=== PATIENT | female | born 1935 | race Caucasian/White ===

== ENCOUNTER → 2016-05-12 | Outpatient (CLI) | payer OTHER, MEDICAID ==
--- NOTE | 2016-05-12 20:09 | MA ---
Screening Digital Mammogram, With iCAD Indication: Routine screening. Personal history of left breast cancer diagnosed in 2011, with subse quent lumpectomy and radiation therapy. Technique: Standard cephalocaudal and mediolateral oblique projections are obtained. This examinati on is processed [facility] detection [facility]. Comparison: April 2015, February 2014, March 2013, and June 2011. Breast Density: Type B. Findings: CAD was reviewed. Benign fat necrosis in the left breast lumpectomy bed is unchanged. No new mass, architectural distortion, or malignant-type calcification has developed. Impression: Benign unchanged mammograms. BI-RADS 2: Benign Finding. Recommendation: Routine screening is recommended in one year. [facility] will send a result letter to the patient. Negative mammography should not preclude additional workup of a clinically suspicious finding. The patient's information is entered into a reminder system with a target due date for her next mammo gram.
== END ==
LOC: CIMAGING 09:13
DX: Z12.31 Encounter for screening mammogram for malignant neoplasm of breast (principal); Z85.3 Personal history of malignant neoplasm of breast; Z92.3 Personal history of irradiation
CPT/HCPCS: G0202

== ENCOUNTER → 2016-06-18 | Outpatient (CLI) | payer OTHER, MEDICAID | LOC: BHFA 10:15 | PROVIDERS: ATTEND Internal Medicine Interventional Cardiology | DX: Z01.810 Encounter for preprocedural cardiovascular examination (principal); I25.10 Atherosclerotic heart disease of native coronary artery without angina pectoris ==

== ENCOUNTER → 2016-08-11 | Outpatient (CLI) | payer OTHER, MEDICAID | LOC: BHFA 09:00 | PROVIDERS: ATTEND Internal Medicine Cardiovascular Disease | DX: I25.10 Atherosclerotic heart disease of native coronary artery without angina pectoris (principal); I10 Essential (primary) hypertension; Z95.1 Presence of aortocoronary bypass graft | CPT/HCPCS: 78452; 93017; A9500; J2785 ==

== ENCOUNTER 2016-09-23 06:14 | Inpatient (IN) | payer OTHER, MEDICAID ==
[2016-09-23] MEDS ORDERED: TRANEXAMIC ACID 3,000 MG/50 ML BAG IRR ONE (06:34)
[2016-09-23] MEDS ORDERED: VANCOMYCIN 1 GM VIAL ONE (06:34)
[2016-09-23] MEDS ORDERED: LIDOCAINE 1% 5 ML SDV ONE (06:37)
[2016-09-23] MEDS ORDERED: MIDAZOLAM 2 MG/2 ML VIAL ONE (06:55)
[2016-09-23] MEDS ORDERED: PROPOFOL/EMULSION 500 MG/50 ML BOTTLE IV ONE (06:59)
[2016-09-23] MEDS ORDERED: fentaNYL 100 MCG/2 ML INJ ONE (06:59)
[2016-09-23] MEDS ORDERED: ROPI/epiNEPH/KETOROLAC JOINT COCKTAIL IU ONE (07:00)
[2016-09-23] MEDS ORDERED: DEXAMETHASONE 4 MG/ML VIAL IVP ONE (07:00)
[2016-09-23] MEDS ORDERED: CHLORHEXIDINE GLUC HIBICLENS 118 ML BTL TP ONE (07:00)
[2016-09-23] MEDS ORDERED: FAMOTIDINE 20 MG TAB PO ONE (07:00)
[2016-09-23] MEDS ORDERED: CEFAZOLIN 2 GM/DEXTR 100 ML IV ONE (07:00)
[2016-09-23] MEDS ORDERED: TRANEXAMIC ACID 3,000 MG in NS 50 ML IRR ONE (07:00)
[2016-09-23] MEDS ORDERED: ACETAMINOPHEN 325 MG TAB PO ONE (07:00)
[2016-09-23] MEDS ORDERED: epHEDrine SULFATE 10 MG/ML SYR ONE ×2 (07:26)
[2016-09-23] MEDS ORDERED: LIDOCAINE 2% 5 ML SDV ONE ×2 (07:27)
[2016-09-23] MEDS ORDERED: PHENYLEPHRINE HCL 100 MCG/ML SYR ONE (07:44)
[2016-09-23] MEDS ORDERED: ROPIVACAINE HCL 150 MG/30 ML INJ ONE (07:56)
[2016-09-23] MEDS ORDERED: TEMAZEPAM 15 MG CAP PO PRN (08:31)
[2016-09-23] MEDS ORDERED: LACTULOSE 20 GM/30 ML UDCUP PO PRN (08:31)
[2016-09-23] MEDS ORDERED: METOCLOPRAMIDE 10 MG/2 ML VIAL IVP PRN (08:31)
[2016-09-23] MEDS ORDERED: BISACODYL 10 MG SUPP PR PRN (08:31)
[2016-09-23] MEDS ORDERED: DIPHENOXYLATE/ATROPINE LOMOTIL 1 TAB PO PRN (08:31)
[2016-09-23] MEDS ORDERED: ONDANSETRON DISINTEGRATING 4 MG TAB PO PRN (08:31)
[2016-09-23] MEDS ORDERED: PHARMACY PAIN CONSULT 1 EA MISC PRN (08:31)
[2016-09-23] MEDS ORDERED: PROMETHAZINE HCL 25 MG SUPPR PR PRN (08:31)
[2016-09-23] MEDS ORDERED: diphenhydrAMINE 25 MG CAP PO PRN (08:31)
[2016-09-23] MEDS ORDERED: ONDANSETRON 4 MG/2 ML VIAL IVP PRN (08:31)
[2016-09-23] MEDS ORDERED: MAGNESIUM HYDROXIDE 30 ML UDCUP PO PRN (08:31)
[2016-09-23] MEDS ORDERED: POLYETHYLENE GLYCOL 3350 17 GM PKT PO PRN (08:31)
[2016-09-23] MEDS ORDERED: PROMETHAZINE HCL 25 MG/ML INJ IVP PRN (08:31)
--- NOTE | 2016-09-23 08:31 | POSTOPPROG ---
Post Op Note Date of Operation: 09/23/16 Surgeon: Michael Layne Product Engineer: ulises layne Anesthesiologist: dr. boston Anesthesia: Spinal, Other (Specify) (adductor canal) Pre-op Diagnosis: R knee OA Post-op Diagnosis: same Indication: right knee pain due to OA that failed conservative measures Procedure: R TKA Findings: severe knee OA Inf/Abcess present in the surg proc area at time of surgery?: No EBL: 50-100
[2016-09-23] MEDS ORDERED: LR 1,000 ML IV SCH (09:00)
[2016-09-23] MEDS: ACETAMINOPHEN 325 MG TAB PO SCH ×3 (12:06→23:31)
[2016-09-23] MEDS: SENNOSIDES/DOCUSATE SODIUM TAB PO SCH ×2 (12:08→20:14)
[2016-09-23] MEDS: oxyCODONE IR 5 MG TAB PO PRN ×2 (13:50→20:07)
[2016-09-23] MEDS: ceFAZolin 2 GM/DEXTROSE 100 ML IV SCH ×2 (14:53→20:13)
[2016-09-23] MEDS: CARVEDILOL 6.25 MG TAB PO SCH (18:26)
[2016-09-23] MEDS: FAMOTIDINE 20 MG TAB PO SCH (20:15)
[2016-09-23] MEDS: ATORVASTATIN CALCIUM 40 MG TAB PO SCH (20:28)
[2016-09-24] MEDS: oxyCODONE IR 5 MG TAB PO PRN ×5 (04:12→22:31)
[2016-09-24 05:43] LABS: HEMATOCRIT 32.9 % (38.0-47.0); HEMOGLOBIN 10.3 g/dL (12.6-16.3)
[2016-09-24 05:57] LABS: ANION GAP 5 mEq/L (8-16); CALCIUM 8.7 mg/dL (8.5-10.4); CARBON DIOXIDE 23 mEq/l (22-31); CHLORIDE 104 mEq/L (97-110); CREATININE 0.6 mg/dL (0.6-1.0); GLOMERULAR FILTRATION RATE > 60; GLUCOSE 100 mg/dL (70-100); POTASSIUM 3.8 mEq/L (3.5-5.2); SODIUM 132 mEq/L (134-144)
[2016-09-24] MEDS ORDERED: LEVOTHYROXINE SODIUM 75 MCG PO SCH (06:00)
[2016-09-24] MEDS: ACETAMINOPHEN 325 MG TAB PO SCH ×3 (06:02→18:03)
[2016-09-24] MEDS: LEVOTHYROXINE 75 MCG TAB PO SCH (06:05)
[2016-09-24] MEDS: CARVEDILOL 6.25 MG TAB PO SCH ×2 (08:13→18:04)
[2016-09-24] MEDS: CLOPIDOGREL BISULFATE 75 MG TAB PO SCH (08:13)
[2016-09-24] MEDS: FAMOTIDINE 20 MG TAB PO SCH ×2 (08:14→22:01)
[2016-09-24] MEDS: SENNOSIDES/DOCUSATE SODIUM TAB PO SCH ×2 (08:44→22:01)
[2016-09-24] MEDS ORDERED: RAMIPRIL 10 MG PO SCH (09:00)
[2016-09-24 11:10] VITALS: RESP 16
[2016-09-24] MEDS: RAMIPRIL 5 MG CAP PO SCH (11:47)
--- NOTE | 2016-09-24 14:14 | SOAPPROG ---
SOAP Progress Note Assessment/Plan: Assessment: Brittney is doing well s/p R TKA 1) pain management: pain is well controlled on oral pain meds, educated patient that pain will worsen this afternoon/evening as the adductor canal block wears off 2) Anemia: level expected initially postop. asymptomatic, continue to monitor 3) VTe ppx: recommend patient resume plavix 4) D/c planning: recommend patient stay another night tonight. patient is nervous about pain and confidence in d/c. Would benefit from more PT. family members appear to be very supportive postop Plan: 09/24/16 14:11 Subjective: Brittney is doing well today, denies SOB, chest pain and N/V. Objective: Vital Signs Temp Pulse Resp BP Pulse Ox 36.4 C 67 16 126/67 H 96 09/24/16 11:09 09/24/16 11:09 09/24/16 11:09 09/24/16 11:09 09/24/16 11:09 Laboratory Results 09/24/16 05:14 09/24/16 05:14 09/23/16 09/24/16 09/25/16 05:59 05:59 05:59 Intake Total 6060 500 Output Total 3135 Balance 2925 500 RLE: incision dressing is clean and dry, NVI, +pf/df ICD10 Worksheet Patient Problems: Problems Problem Status Onset Osteoarthritis of right knee Acute - ICD10 Problem Qualifiers (1) Osteoarthritis of right knee Qualifiers: Osteoarthritis type: O
[2016-09-24] MEDS: CYCLOBENZAPRINE 10 MG TAB PO PRN (19:33)
[2016-09-24] MEDS ORDERED: hydrOXYzine HCL 25 MG TAB PO ONE (20:45)
[2016-09-24] MEDS: ATORVASTATIN CALCIUM 40 MG TAB PO SCH (21:22)
[2016-09-25] MEDS: ACETAMINOPHEN 325 MG TAB PO SCH ×3 (01:07→13:00)
[2016-09-25] MEDS: oxyCODONE IR 5 MG TAB PO PRN ×4 (02:24→14:56)
[2016-09-25 05:17] LABS: HEMOGLOBIN 12.3 g/dL (12.6-16.3)
[2016-09-25] MEDS: LEVOTHYROXINE 75 MCG TAB PO SCH (05:39)
[2016-09-25] MEDS: CYCLOBENZAPRINE 10 MG TAB PO PRN (05:40)
[2016-09-25 07:35] VITALS: BP 141/81; PULSE 92; TEMP 98.4; O2SAT 94
[2016-09-25] MEDS: CLOPIDOGREL BISULFATE 75 MG TAB PO SCH (08:49)
[2016-09-25] MEDS: FAMOTIDINE 20 MG TAB PO SCH (08:50)
[2016-09-25] MEDS: CARVEDILOL 6.25 MG TAB PO SCH (08:50)
[2016-09-25] MEDS: SENNOSIDES/DOCUSATE SODIUM TAB PO SCH (08:51)
--- NOTE | 2016-09-25 10:11 | GOP ---
[f rep st] OPERATIVE REPORT DATE OF OPERATION: 09/23/2016 SURGEON: Daisy Dacosta MD ENVIRONMENTAL PLANNING ENGINEER: PENG Mckeon ANESTHESIA: Spinal. PREOPERATIVE DIAGNOSIS: ___Right knee DJD POSTOPERATIVE DIAGNOSIS: ____same PROCEDURE: Total knee arthroplasty. PATHOLOGY: Severe lateral and patellofemoral osteoarthritis. ESTIMATED BLOOD LOSS: 30 ml. INDICATIONS: This is an 81-year-old female with severe and progressive pain and deformity of the right knee unresponsive to conservative care. Risks and benefits of the surgical intervention were explained in detail. DESCRIPTION OF PROCEDURE: The patient was brought to the operative room and placed on the table in the supine position. Spinal anesthesia was induced without difficulty. A pneumatic tourniquet was applied about the [right] proximal thigh, and the leg was prepped and draped in a sterile fashion. The leg massey was applied. After exsanguination by elevation the tourniquet was inflated to 250 mm of mercury. Incision was made anterior medial from the tibial tuberosity to a point 2 cm proximal to the superior pole of the patella. Medial parapatellar arthrotomy was carried out from the superior pole of the patella and posteriorly in line with the fibers of the Type 2 VMO. The medial collateral ligament was elevated and the infrapatellar fat pad was resected. The patella was everted and the articular surface was excised. A 32 mm patellar button was placed. The distal femoral guide hole was drilled and the 6 degree alignment tyson was placed. A 10 mm distal femoral cut was made without difficulty. Attention was turned to the tibia and a standard 6 mm cut based on the medial tibial condyle was performed. The tibial articular surface was excised without difficulty. Attention was turned back to the femur and a size 3 Triathlon femoral cutting block was positioned. Anterior, posterior, and chamfer cuts were made, followed by the intercondylar box cut. The knee was extended and the remnants of the medial and lateral meniscus were excised. The posterior capsule was injected with ropivacaine, epinephrine, and Toradol. A size 3 MIS mini-keel tibial tray was positioned. Trial reduction was then carried out. There was excellent range of motion, alignment, and stability using the 9 mm polyethylene. All trials were then removed. The joint was thoroughly irrigated and carefully dried. Two packages of cement and 2 grams of vancomycin were mixed in the vacuum mixer and placed on the fixation surfaces of all surfaces of the components. The components were implanted and all excess cement was thoroughly removed. The permanent 9 mm polyethylene X3 was placed without difficulty. The tourniquet was deflated and all bleeders were coagulated. The wound was thoroughly irrigated and closed using interrupted sutures of 2-0 Vicryl for the joint capsule. The subcu was closed with 3-0 Vicryl and the skin with 4-0 Monocryl. Dermabond and Steri-Strips were applied followed by a compressive dressing. The patient was then moved from the operating room to the recovery room in good condition, having tolerated the procedure well. /[id number]/MODL MTDD
--- NOTE | 2016-09-25 12:51 | PDFACE2FAC ---
Face to Face Encounter 1. I certify that this patient is under my care and that I, or a nurse practitioner or physician's sound assistant working with me, had a [id number] encounter that meets the physician zazu-[id number] encounter requirements with this patient on 09/25/16. 2. I certify that based on my findings, the following services are medically necessary home health services: [X Nursing] [X Physical Therapy] [X Speech-Language Pathology] 3. The medical condition and clinical findings that support the need for specialized skills, knowledge and judgement of the above services are: [] 4. I certify this patient is homebound* because [the patient's condition restricts their ability to leave their home except with the assistance of another individual or the aid of a supportive device.] I certify that this patient is confined to his/her home and needs intermittent shelter care, physical and/or speech therapy. This patient is under my care and I have authorized home health services. * Homebound is defined by Medicare as follows: absences from home require considerable and tacking effort and or for medical reasons or confucianist services or are infrequent or of short duration when for other reasons*.
--- NOTE | 2016-09-25 12:51 | PDIAF ---
- Diagnosis Code Status: Full Code - Medication Management Discharge Medications: Medications to Continue on Transfer Alendronate Sodium [Fosamax 70 MG (*)] 70 mg PO FR@0700 08/19/14 [Last Taken Unknown] Atorvastatin Calcium [Lipitor 40 mg (*)] 40 mg PO HS 08/19/14 [Last Taken ] Carvedilol [Coreg (*)] 6.25 mg PO BIDMEAL 08/19/14 [Last Taken 09/23/16 05:30] Cholecalciferol Vit D3 [Vitamin D3 (*)] 2,000 units PO DAILY 08/19/14 [Last Taken 09/09/16] Clopidogrel Bisulfate [Plavix (*)] 75 mg PO DAILY 08/19/14 [Last Taken 09/16/16] Herbals/Supplements -Info Only 1 ea PO DAILY 08/19/14 [Last Taken 09/09/16] LEVOTHYROXINE SODIUM [Tirosint 75 mcg] 75 mcg PO DAILY06 08/19/14 [Last Taken 05:30] Cool-3 Fatty Acids [Fish Oil 1000 mg (*)] 1,000 mg PO DAILY@12 08/19/14 [Last Taken 09/09/16] Ramipril [Altace] 10 mg PO DAILY@12 08/19/14 [Last Taken Unknown] Discharge Medications: Refer to the Discharge Home Medication list for PRN reason. - Orders Services needed: Home Care, Physical Therapy Home Care Face to Face: I certify that this patient was under my care and that I had the required [id number] encounter meeting the encounter requirements on the discharge day. My findings support the fact that the patient is homebound as defined in CMS Chapter 7 Medicare Benefits Manual 30.1.1, The condition of the patient is such that there exists a normal inability to leave home and consequently, leaving home would require a considerable and taxing effort. - Follow Up Care Current Providers and Referrals: Michael Dacosta MD [Medical Doctor] - 10/12/16 11:00 am Alessia Burks MD [Primary Care Provider] -
[2016-09-25] MEDS: RAMIPRIL 5 MG CAP PO SCH (13:00)
--- NOTE | 2016-09-25 20:57 | GDS ---
[f rep st] DISCHARGE SUMMARY ADMISSION DIAGNOSIS: Right knee osteoarthritis. DISCHARGE DIAGNOSIS: Right knee osteoarthritis. PROCEDURE: Right total knee arthroplasty. VTE PROPHYLAXIS: Recommend patient resume Plavix. BRIEF DESCRIPTION OF HOSPITAL STAY: Patient was admitted for an elective joint arthroplasty. The p atient tolerated the procedure well and has passed physical therapy. The patient was given appropri ate antibiotic prophylaxis and venous thromboembolism prophylaxis. The patient's pain was well cont rolled on oral pain medication, patient was holding down food, and had urinated. Decision was made to discharge the patient. The patient was given post-operative prescriptions pre-operatively. PLAN: Please follow up as scheduled in Dr. Dacosta's office, October 12, at 11 a.m. /[id number]/MODL
== END 2016-09-25 15:55 | disposition home health service (06) | DRG 470 ==
LOC: F3N 06:14
PROVIDERS: ADMIT Orthopaedic Surgery; ATTEND Orthopaedic Surgery
PROC: 0SRC0J9 Replacement of Right Knee Joint with Synthetic Substitute, Cemented, Open Approach (ICD-10-PCS; principal; 2016-09-23 07:15)
DX: M17.11 Unilateral primary osteoarthritis, right knee (principal); I10 Essential (primary) hypertension; E78.5 Hyperlipidemia, unspecified; E03.9 Hypothyroidism, unspecified; Z95.1 Presence of aortocoronary bypass graft
CPT/HCPCS: 97110-GP; 97116-GP; 97161-GP; 97165-GO; 97530-GP; 97535-GO; C1713; G8978-GP-CJ; G8979-GP-CI; G8980-GP-CI; G8987-GO-CI; G8988-GO-CI; G8989-GO-CI; J0171; J0690; J1100; J1885; J2250; J2370; J2550; J2704; J2795; J3010; J3370

== ENCOUNTER 2017-01-22 17:14 | Emergency (ER) | payer OTHER, MEDICAID ==
--- NOTE | 2017-01-22 17:19 | EDPHY ---
H & P HPI/ROS: HPI CHIEF COMPLAINT: Fall, trauma, head laceration HISTORY OF PRESENT ILLNESS: This patient very pleasant 81-year-old female she does have significant past medical history for coronary artery disease, hypertension, hyperlipidemia, thyroid disease, breast cancer, presents emergency room after she sustained a mechanical trip and fall around 430 approximately an hour ago. She had head strike. No LOC. She was outside in has a xeroscaped yard and tripped on a rock. She fell forward with head strike. No LOC. She sustained a forehead laceration midline vertically oriented 4 cm in length. She denies any neck pain but did state she had some neck pain earlier. She denies extremity pain chest pain shortness of breath. Denies syncope. Of note this patient is on Plavix. Not Coumadin. No Xarelto. Past Medical History: Hypertension, hyperlipidemia, coronary disease, thyroid disease breast CA Past Surgical History: CABG Social History: Denies drugs alcohol tobacco products. Lives locally. Family History: Noncontributory. ROS REVIEW OF SYSTEMS: A comprehensive 10 point review of systems is otherwise negative aside from elements mentioned in the history of present illness. Exam Constitutional triage nursing summary reviewed, vital signs reviewed, awake/ alert. Eyes normal conjunctivae and sclera, EOMI, PERRLA. HENT head/neck: Forehead hematoma rather large 5 cm x 5 cm. Additionally there is a midline vertically oriented 4 cm laceration present. No arterial bleed. No galea involvement. Midface stable. Dentition intact. moist mucus membranes, no epistaxis, neck supple/ no meningismus, no raccoon eyes. Respiratory clear to auscultation bilaterally, normal breath sounds, no respiratory distress, no wheezing. Cardiovascular rate normal, regular rhythm, no murmur, no edema, distal pulses normal. Gastrointestinal soft, non-tender, no rebound, no guarding, normal bowel sounds, no distension, no pulsatile mass. Genitourinary no CVA tenderness. Musculoskeletal no midline vertebral tenderness, full range of motion, no calf swelling, no tenderness of extremities, no meningismus, good pulses, neurovascularly intact. Skin pink, warm, & dry, no rash, skin atraumatic. Neurologic awake, alert and oriented x 3, AAOx3, moves all 4 extremities equally, motor intact, sensory intact, CN II-XII intact, normal cerebellar, normal vision, normal speech. Psychiatric normal mood/affect. Heme/Lymph/Immune no lymphadenopathy. Differential Diagnosis: Includes but is not limited to in a particular order, closed-head injury, concussion, intracranial bleed, skull fracture, cervical spine injury, forehead scalp hematoma, forehead hematoma, forehead laceration, soft tissue injury. Medical Decision Making: Plan for this patient CT head without contrast, CT cervical spine without contrast for trauma, repair laceration under sterile conditions. Will need to be copiously cleaned and irrigated. Laceration Repair Procedure: Verbal Consent was obtained, Under sterile conditions, The patient had lidocaine with epinephrine used approximately 5ccs to local anesthetize the midline vertically oriented 4 cm forehead Laceration. The wound was copiously irrigated with sterile fluid, the wound was explored for foreign bodies there were none visualized, the wound was explored with a sterile glove to the base. There are no deep structures involved, including no arterial injury. 4 interrupted 5.O Prolene sutures. were placed in this patient's laceration. SHe had good close approximation of the wound edges. SHe Tolerated this well. CT scan of the head without IV contrast for trauma. The results of the study are shows forehead hematoma otherwise no intracranial trauma no skull fracture no brain bleed. he study was read by Dr. Song. I viewed the images myself on the PACS system. Knee x-ray: Unremarkable for fracture. Hardware in place. Image interpreted by myself. CT scan head and neck show no acute trauma. The be reviewed by myself as well as radiologist Dr. Song. Patient's laceration is repaired. Hemodynamically stable pressure dressing in place. I will allow her to go home. Sutures need to be removed in 7 days. She understands keep the wound clean, dry and protected. Return emergency room if there is any worsening symptoms questions or concerns. I went over return precautions with the daughter as well as the patient this includes severe headache, not acting right, vomiting or any questions or concerns. Bleeding. Source: Patient - Personal History Tetanus Vaccine Date: 08/18/14 - Medical/Surgical History Hx Asthma: No Hx Chronic Respiratory Disease: No Hx Diabetes: No Hx Cardiac Disease: Yes Hx Renal Disease: No Hx Cirrhosis: No Hx Alcoholism: No Hx HIV/AIDS: No Hx Splenectomy or Spleen Trauma: No Other PMH: left lumpectomy with dr carrillo 3 years ago, [id number] pierson , hl, hypothyroid, htn, oa, varicose vein stripping last year, RTKA - Social History Smoking Status: Never smoked Constitutional: Initial Vital Signs Temperature (C) 36.5 C 01/22/17 17:15 Heart Rate 82 01/22/17 17:15 Respiratory Rate 16 01/22/17 17:15 Blood Pressure 129/61 H 01/22/17 17:15 O2 Sat (%) 95 01/22/17 17:15 O2 Delivery Mode Room Air Allergies/Adverse Reactions: No Known Allergies Allergy (Verified 01/22/17 17:32) Home Medications: Medication Instructions Recorded Alendronate Sodium [Fosamax 70 MG 70 mg PO FR@0700 08/19/14 (*)] Atorvastatin Calcium [Lipitor 40 40 mg PO HS 08/19/14 mg (*)] Carvedilol [Coreg (*)] 6.25 mg PO BIDMEAL 08/19/14 Cholecalciferol Vit D3 [Vitamin D3 2,000 units PO DAILY 08/19/14 (*)] Clopidogrel Bisulfate [Plavix (*)] 75 mg PO DAILY 08/19/14 Herbals/Supplements -Info Only 1 ea PO DAILY 08/19/14 LEVOTHYROXINE SODIUM [Tirosint 75 75 mcg PO DAILY06 08/19/14 mcg] Stamps-3 Fatty Acids [Fish Oil 1000 1,000 mg PO DAILY@12 08/19/14 mg (*)] Ramipril [Altace] 10 mg PO DAILY@12 08/19/14 Acetaminophen [Tylenol 325mg (*)] 650 mg PO Q6HRS #0 tab 09/25/16 Sennosides/Docusate Sodium 1 - 2 tab PO BID #0 tab 09/25/16 [Senokot-S] oxyCODONE IR [Oxycodone Ir (*)] 5 - 10 mg PO Q3HRS PRN #0 tab 09/25/16 Medical Decision Making - Diagnostics Imaging Results: Imaging Impressions Cervical Spine CT 01/22/17 17:30 Impression: 1. No acute osseous at about is seen about the cervical spine. 2. Degenerative disk disease mid to lower cervical spine along with facet hypertrophy throughout the cervical spine left side greater than right. 3. Mild to moderate disk bulge at C5-C6 that along with posterior ligamentum flavum hypertrophy contributes to moderate spinal stenosis. 4. 2 mm of anterior subluxation of C4 on C5 probably related to facet hypertrophy. Findings discussed with Alin Conner MD at 18:33 hour, 01/22/2017. Head CT 01/22/17 17:30 Impression: 1. Mild age-related atrophy. 2. No hemorrhage, mass effect, or definite acute peripheral infarct. 3. Mild microvascular ischemic disease. 4. Soft tissue contusion over the frontal bone without underlying fracture. 5. Increased density on each side of the mid cerebellum anteriorly that is more dense than would be expected for blood products. This could represent ectopic choroid plexus from the fourth ventricle. Findings discussed with Alin Conner MD at 18:31 hour, 01/22/2017. If symptoms worsen, additional imaging may be necessary. Departure - Departure Disposition: Home, Routine, Self-Care Clinical Impression: Laceration Traumatic hematoma of forehead Qualifiers: Encounter type: initial encounter Qualified Code(s): S00.83XA - Contusion of other part of head, initial encounter Condition: Good Instructions: Laceration (ED), Care For Your Stitches (ED), Hematoma (ED), Contusion in Adults (ED), Fall Prevention for Older Adults (ED) Additional Instructions: 1.Ice your forehead. 2. Sutures need to be removed in 7 days. 3. Return emergency room if you have worsening symptoms questions or concerns includes worsening headache, vomiting, fever. Bleeding. 4. Keep your wound clean, dry and protected. Referrals: NONE *PRIMARY CARE P,. [Primary Care Provider] - As per Instructions
[2017-01-22 17:38] VITALS: O2SAT 95
[2017-01-22 20:00] VITALS: BP 122/47; PULSE 81; RESP 18; TEMP 98.1
== END 2017-01-22 19:57 | disposition home or self-care (01) ==
LOC: CED 17:14
PROC: 0HQ1XZZ Repair Face Skin, External Approach (ICD-10-PCS; principal; 2017-01-22)
DX: S01.81XA Laceration without foreign body of other part of head, initial encounter (principal); I10 Essential (primary) hypertension; I25.810 Atherosclerosis of coronary artery bypass graft(s) without angina pectoris; Z85.3 Personal history of malignant neoplasm of breast; W01.198A Fall on same level from slipping, tripping and stumbling with subsequent striking against other object, initial encounter
CPT/HCPCS: 70450-PO; 72125-PO; 73560-PO

== ENCOUNTER → 2017-05-17 | Outpatient (CLI) | payer OTHER, MEDICAID | LOC: CIMAGING 09:40 | PROVIDERS: ATTEND Internal Medicine | DX: Z12.31 Encounter for screening mammogram for malignant neoplasm of breast (principal); Z85.3 Personal history of malignant neoplasm of breast; Z80.3 Family history of malignant neoplasm of breast ==

== ENCOUNTER → 2018-05-19 | Outpatient (CLI) | payer OTHER, MEDICAID | LOC: CIMAGING 10:23 | PROVIDERS: ATTEND Internal Medicine | DX: Z12.31 Encounter for screening mammogram for malignant neoplasm of breast (principal); Z85.3 Personal history of malignant neoplasm of breast ==